=== PATIENT | female | born 1990 | race Caucasian/White ===

== ENCOUNTER 2018-12-21 10:07 | Emergency (ER) | payer OTHER ==
[2018-12-21] MEDS ORDERED: methylPREDNISolone SOD SUCC 125 MG/2 ML VIAL IVP ONE (10:11)
[2018-12-21] MEDS ORDERED: NS 1,000 ML IV ONE (10:11)
[2018-12-21] MEDS ORDERED: RANITIDINE 50 MG/2 ML VIAL IVP ONE (10:11)
[2018-12-21] MEDS ORDERED: LORazepam 2 MG/ML INJ IVP ONE (10:12)
--- NOTE | 2018-12-21 10:25 | EDPHY ---
H & P Source: Patient Exam Limitations: No limitations Time Seen by Provider: 12/21/18 10:09 HPI/ROS: HPI: This is a 28-year-old female who presents with Chief Complaint: Allergic reaction to peanuts Location: Body Quality: Allergic reaction Duration: 45 min prior to arrival Signs and Symptoms: +shortness of breath at rest, + shortness of breath on exertion, no cough, no chest pain, no palpitations, no lower extremity edema, no wheezing, no orthopnea, no paroxysmal nocturnal dyspnea, no fever, no injury/ trauma, no hemoptysis, no carpal pedal spasms Timing: Acute, improved Severity: Moderate Context: Patient presents with eating [employer] that contained peanuts approximately 45 min prior to arrival. She reports that she has a peanut allergy and normally has an EpiPen but she left at home. She reports that she has never had to use her EpiPen and has never had to be hospitalized due to her peanut allergy. Reports that she normally becomes nauseous vomit several times and then becomes "warm and flushed." No history of lung disease. Patient reports that she feels nauseous and has vomited x1. Patient reports that she feels like she can't "catch her breath." Modifying Factors: None Comment: ROS: A comprehensive 10 system review of systems is otherwise negative aside from elements mentioned in the history of present illness. MEDICAL/SURGICAL/SOCIAL HISTORY: Medical history: Hypothyroidism Surgical history: Denies Social history: Employed. Nonsmoker. CONSTITUTIONAL: Moderate distress, anxious, overweight white female, awake and alert, nontoxic in appearance, talking in complete sentences without difficulty HEENT: Atraumatic and normocephalic, PERRL, EOMI. Nares patent; no rhinorrhea; no nasal mucosal edema. Tympanic membranes clear. Oropharynx clear, no facial swelling, no postpharyngeal edema, no exudate and moist pink mucosa. Airway patent. No lymphadenopathy. No meningismus. Cardiovascular: Normal S1/S2, tachycardia, regular rhythm, without murmur rub or gallop. PULMONARY/CHEST: Symmetrical and nontender. Clear to auscultation bilaterally. No accessory muscle usage. Tachypnea. Shallow breathing pattern. No upper airway transmitted sounds. ABDOMEN: Soft, nondistended, nontender, no rebound, no guarding, no peritoneal signs, no masses or organomegaly. No CVAT. EXTREMITIES: 2/2 pulses, strength 5/5, no deformities, no clubbing, no cyanosis or edema. NEUROLOGICAL: no focal neuro deficits. GCS 15. SKIN: Warm and dry, no erythema. no rash. Good capillary refill. (Natividad Hester) Constitutional: Initial Vital Signs Temperature (C) 36.8 C 12/21/18 10:12 Heart Rate 99 12/21/18 10:12 Respiratory Rate 24 H 12/21/18 10:12 Blood Pressure 171/114 H 12/21/18 10:12 O2 Sat (%) 94 12/21/18 10:12 O2 Delivery Mode Room Air Allergies/Adverse Reactions: peanut Allergy (Severe, Verified 12/21/18 10:12) clindamycin Allergy (Verified 12/21/18 10:12) Home Medications: Medication Instructions Recorded Epipen 0.3 MG 12/21/18 Levothyroxine Sodium 12/21/18 Medical Decision Making ED Course/Re-evaluation: Vital signs reviewed and shows elevated blood pressure and tachypnea likely due to distress Placed on satin finisher and given 1 L normal saline, IV Solu-Medrol 125 mg, IV Benadryl 50 mg, IV Zantac 50 mg and IV Ativan 1 mg Decision made at this time to not give epinephrine as no signs of anaphylaxis, angioedema, respiratory distress 1200: Reassessed patient 2 hr later, no progression of symptoms, mentating well and stable with complete relief of symptoms. Advised supportive care. Patient already has an EpiPen. This patient was seen under the supervision of my secondary supervising physician. I evaluated and cared for this patient with attending. (Natividad Hester) I did not see this patient while she was in the emergency department. However her care was discussed with the PA while the patient was in the department. I agree with treatment plan and management (Miki Dugan) Differential Diagnosis: Differential diagnosis includes but is not limited to allergic reaction, anaphylaxis, angioedema, mast cell reaction, anxiety, gastroenteritis. (Natividad Hester) - Data Points Medications Given: Discontinued Medications Diphenhydramine HCl (Benadryl Injection) 50 mg IVP EDNOW ONE Stop: 12/21/18 10:12 Last Admin: 12/21/18 10:21 Dose: 50 mg Sodium Chloride (Ns) 1,000 mls @ 0 mls/hr IV ONCE ONE; Wide Open PRN Reason: Protocol Stop: 12/21/18 10:12 Last Admin: 12/21/18 10:19 Dose: 1,000 mls Lorazepam (Ativan Injection) 1 mg IVP EDNOW ONE Stop: 12/21/18 10:13 Last Admin: 12/21/18 10:23 Dose: 1 mg Methylprednisolone Sodium Succinate (Solu-Medrol) 125 mg IVP EDNOW ONE Stop: 12/21/18 10:12 Last Admin: 12/21/18 10:20 Dose: 125 mg Ranitidine HCl (Zantac) 50 mg IVP EDNOW ONE Stop: 12/21/18 10:12 Last Admin: 12/21/18 10:25 Dose: 50 mg Departure - Departure Disposition: Home, Routine, Self-Care Clinical Impression: Food allergy, peanut Condition: Good Instructions: Peanut Allergy (ED) Additional Instructions: Please avoid foods containing peanuts. Take Benadryl 25-50 mg every 4-6 hours as needed for itching, allergic reaction. Please carry your EpiPen with you in your purse. Follow-up with an traffic control specialist for further testing if needed. Referrals: Marbella Mcleod MD [[facility] Primary Care Provider] - As per Instructions
[2018-12-21 12:08] VITALS: BP 135/70
== END 2018-12-21 12:17 | disposition home or self-care (01) ==
DX: R11.2 Nausea with vomiting, unspecified (principal); T78.01XA Anaphylactic reaction due to peanuts, initial encounter; E86.9 Volume depletion, unspecified
CPT/HCPCS: 96374; J2060